=== PATIENT | male | born 1965 | race African-American/Black ===

== ENCOUNTER 2016-11-25 09:57 | Emergency (ER) | payer MEDICAID ==
[~2016-11-25] VITALS: Ht 182.9 cm; Wt 90.0 kg
[2016-11-25 10:04] VITALS: BP 167/97; PULSE 88; RESP 15; TEMP 98.2; O2SAT 99
[2016-11-25] MEDS ORDERED: BRIM0.2S4 EACH EYE (12:10)
[2016-11-25] MEDS ORDERED: LOSA50TA2 PO (12:10)
[2016-11-25] MEDS ORDERED: DORZ2SOL EACH EYE (12:10)
[2016-11-25] MEDS ORDERED: LATA0.002 EACH EYE (12:10)
[2016-11-25 12:11] VITALS: BP 139/90; PULSE 67; RESP 16; O2SAT 99
--- NOTE | 2016-11-25 12:30 | PD ---
HPI Chief Complaint: Eye Problems/Injury Time Seen by Provider: 12:26 Travel History International Travel<30 days: No Contact w/Intl Traveler<30days: No Traveled to known affect area: No History of Present Illness HPI Patient is a 51-year-old male presenting to emergency for evaluation of visual changes in his left eye as well as a left temporal headache. 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 This morning he has been unable to see shadows and light perception is dimmer. Patient states he woke up with a headache, he is taken acetaminophen with no relief. He reports his pain as a 7 out of 10 and pin-like. Patient stated that he was at school this morning and was noted to have high blood pressure with a diastolic of 102. He takes losartan HCTZ, he states he took this at 5:30 this morning. He denies any chest pain, shortness of breath, abdominal pain, nausea, vomiting. PFSH Past Medical History Bipolar Disorder: Yes Hypertension: Yes Past Surgical History Surgical History: No Previous Surgery Social History Alcohol Use: Yes Tobacco Use: Yes Substance Use: No Allergies-Medications (Allergen,Severity, Reaction): Coded Allergies: Depakote (Verified Allergy, Severe, 11/25/16) Reported Meds & Prescriptions Reported Meds & Active Scripts Active Reported Brimonidine Opth Drops (Brimonidine Tartrate) 0.2% Soln 1 Drop EACH EYE BID Losartan-Hydrochlorothiazide 50-12.5 Mg Tab 1 Tab PO DAILY Latanoprost Opth Drops (Latanoprost) 0.005% Drops 1 Drop EACH EYE HS Refrigerate until opened. Dorzolamide Opth Drops (Dorzolamide HCl) 2% Soln 1 Drop EACH EYE BID PRN Review of Systems Except as stated in HPI: all other systems reviewed are Neg Eyes: Positive: Visual changes, Blindness HENT: Positive: Headaches Cardiovascular: No: Chest Pain or Discomfort Respiratory: No: Shortness of Breath Gastrointestinal: No: Nausea, Vomiting, Abdominal Pain Musculoskeletal: No: Myalgias Physical Exam Narrative GENERAL: Well-developed, well-nourished, male. Resting comfortably in no acute distress. SKIN: Focused skin assessment warm/dry. HEAD: Atraumatic. Normocephalic. EYES: Pupils equal and round. No scleral icterus. No injection or drainage. ENT: No nasal bleeding or discharge. Mucous membranes pink and moist. NECK: Trachea midline. No JVD. CARDIOVASCULAR: Regular rate and rhythm. No murmur appreciated. RESPIRATORY: No accessory muscle use. Clear to auscultation. Breath sounds equal bilaterally. GASTROINTESTINAL: Abdomen soft, non-tender, nondistended. Hepatic and splenic margins not palpable. MUSCULOSKELETAL: No obvious deformities. No clubbing. No cyanosis. No edema. NEUROLOGICAL: Awake and alert. No obvious cranial nerve deficits. Motor grossly within normal limits. Normal speech. PSYCHIATRIC: Appropriate mood and affect; insight and judgment normal. Data Data Last Documented VS Vital Signs Date Time Temp Pulse Resp B/P Pulse Ox O2 Delivery O2 Flow Rate FiO2 11/25/16 12:11 67 16 139/90 99 Room Air 11/25/16 10:[address] Brain W/O Iv Contrast(Rout) (11/25/16 ) [facility] Medical Decision Making Medical Screen Exam Complete: Yes Emergency Medical Condition: Yes Interpretation(s) Vital Signs Date Time Temp Pulse Resp B/P Pulse Ox O2 Delivery O2 Flow Rate FiO2 11/25/16 12:11 67 16 139/90 99 Room Air 11/25/16 12:03 16 11/25/16 10:04 98.2 88 15 167/97 99 Differential Diagnosis Acute worsening of glaucoma versus hemorrhage versus uncontrolled hypertension versus other Narrative Course Patient is a 51-year-old male presenting to the emergency department for evaluation of visual changes in his left eye. Patient is blind secondary to glaucoma however he had light and shadow perception in the left eye which is no change since this morning. Additionally he has had new onset of a headache on the left temporal area. We'll obtain CT scan of the brain. Patient's blood pressure is 139/90 currently. I will attempt to contact patient's ukrainian folk arts instructor in [place]. Toy-Pen was used to assess intraocular pressure. Readings of 85, 86, 58 were obtained. Discussed with my attending physician. [address] Hart's office in [facility], message was left with earth moving technician who attempted to contact physician in the office. Call back number was given. No call back has been received as of 1400. Patient reports to me that he's had worse visual changes in the past that have resolved on their own. He reports compliance with his medications and eyedrops. CT scan of the brain is negative for acute abnormality. Patient's blood pressure has been well controlled in the emergency department. At this time patient will be discharged home, he is advised to contact his ukrainian folk arts instructor and schedule a follow-up appointment. He is further encouraged to return to emergency department immediately for any new or worsening symptoms. Plan of care discussed with the attending physician. Patient stable for discharge. Diagnosis Primary Impression: Visual changes Referrals: Negative Assembler call for appointment Patient Instructions: General Instructions, Your Vision (GEN) Additional Instructions: Call your ukrainian folk arts instructor to schedule a follow-up appointment Return to emergency department for any new or worsening symptoms Continue home medications as previously prescribed Med/Other Pt SpecificInfo: No Change to Meds Disposition: 01 DISCHARGE HOME Condition: Stable Felicia Stafford Nov 25, 2016 12:30
--- NOTE | 2016-11-25 13:09 | RADRPT ---
EXAM DATE/TIME: 11/25/2016 12:45 [facility] COMPARISON: No previous studies available for comparison. INDICATIONS : Visual changes and left temporal cephalgia. RADIATION DOSE: 56.77 CTDIvol (mGy) MEDICAL HISTORY : Hypertension. SURGICAL HISTORY : None. ENCOUNTER: Initial ACUITY: 1 day PAIN SCALE: 7/10 LOCATION: Left temporal head TECHNIQUE: Multiple contiguous axial images were obtained of the head. Using automated exposure control and adj ustment of the mA and/or kV according to patient size, radiation dose was kept as low as reasonably a chievable to obtain optimal diagnostic quality images. FINDINGS: CEREBRUM: The ventricles are normal for age. No evidence of midline shift, mass lesion, hemorrhage or acute in farction. No extra-axial fluid collections are seen. POSTERIOR FOSSA: The cerebellum and brainstem are intact. The 4th ventricle is midline. The cerebellopontine angle i s unremarkable. EXTRACRANIAL: The visualized portion of the orbits is intact. SKULL: The calvaria is intact. No evidence of skull fracture. CONCLUSION: Negative CT scan of the head. Justin Bruno MD FACR on November 25, 2016 at 13:07 Board Certified Radiologist. This report was verified electronically.
== END 2016-11-25 14:28 | disposition home or self-care (01) ==
LOC: NEPC 09:57
DX: H54.7 Unspecified visual loss (principal); H40.9 Unspecified glaucoma; I10 Essential (primary) hypertension; F31.9 Bipolar disorder, unspecified; Z72.0 Tobacco use
CPT/HCPCS: 70450